=== PATIENT | female | born 1970 | race African-American/Black ===

== ENCOUNTER 2016-09-28 14:57 | Emergency (ER) | payer OTHER ==
[2016-09-28 16:43] VITALS: BP 136/97
== END 2016-09-28 16:43 | disposition home or self-care (01) ==
LOC: ED 14:57
DX: B34.9 Viral infection, unspecified (principal); R03.0 Elevated blood-pressure reading, without diagnosis of hypertension
CPT/HCPCS: Q0092; Q0162

== ENCOUNTER 2019-12-02 10:39 | Emergency (ER) | payer OTHER ==
[2019-12-02 10:50] VITALS: Ht 175.3 cm
[2019-12-02 13:54] VITALS: BP 155/107
== END 2019-12-02 13:54 | disposition home or self-care (01) ==
LOC: ED 10:39
DX: M75.32 Calcific tendinitis of left shoulder (principal); Z98.890 Other specified postprocedural states
CPT/HCPCS: 20552; J2001; J3301; J3490; Q0092

== ENCOUNTER 2020-01-21 11:13 | Emergency (ER) | payer OTHER ==
[~2020-01-21] VITALS: Ht 175.3 cm; Wt 88.5 kg
[2020-01-21 11:17] VITALS: Ht 175.3 cm; Wt 88.5 kg
[2020-01-21 12:43] VITALS: BP 160/112
== END 2020-01-21 12:43 | disposition home or self-care (01) ==
LOC: ED 11:13
DX: M75.32 Calcific tendinitis of left shoulder (principal); I10 Essential (primary) hypertension
CPT/HCPCS: 20552; J2001; J3301; J3490

== ENCOUNTER 2020-03-26 09:12 | Emergency (ER) | payer OTHER ==
[~2020-03-26] VITALS: Ht 175.3 cm; Wt 85.7 kg
[2020-03-26 09:15] VITALS: Ht 175.3 cm; Wt 85.7 kg
== END 2020-03-26 10:15 | disposition left against medical advice (07) ==
LOC: ED 09:12
DX: R10.2 Pelvic and perineal pain (principal); R19.7 Diarrhea, unspecified; N83.209 Unspecified ovarian cyst, unspecified side
CPT/HCPCS: J1885; J7030

== ENCOUNTER 2020-05-06 18:41 | Emergency (ER) | payer OTHER ==
[~2020-05-06] VITALS: Ht 175.3 cm; Wt 83.9 kg
[2020-05-06 19:12] VITALS: Ht 175.3 cm; Wt 83.9 kg
[2020-05-06 21:30] VITALS: BP 143/85
== END 2020-05-06 21:30 | disposition home or self-care (01) ==
LOC: ED 18:41
DX: M75.92 Shoulder lesion, unspecified, left shoulder (principal); I10 Essential (primary) hypertension
CPT/HCPCS: 20552; J2001; J3301; J3490